=== PATIENT | female | born 1990 | race Caucasian/White ===

== ENCOUNTER 2021-11-20 08:10 | Emergency (ER) | payer BC ==
[~2021-11-20] VITALS: Ht 165.1 cm; Wt 60.8 kg
--- NOTE | 2021-11-20 08:23 | NUR ---
PT AMBULATED TO ER BED 2 WITH A STEADY GAIT.
[2021-11-20 08:25] VITALS: BP 122/65
--- NOTE | 2021-11-20 08:31 | NUR ---
31 Y/O FEMALE BIB SPOUSE C/O INGESTION OF KETAMINE 2 PILLS 37.5MG PO AND 3 IBUPOFEN 600MG PO. PT SELF INDUCED VOMITING 1 TIME. PER PT KETAMINE PRESCRIBED FOR WEIGHT LOSS. DENIES FEVER/CHILLS. DENIES N/V/D. HR 73, SPO2 100% ON RA, BP 122/65. DENIES PAIN. DENIES SOB. DENIES CHEST PAIN. DENIES PMH NKA
--- NOTE | 2021-11-20 08:31 | NUR ---
Note judieone in EDM - 11/20/21 at 0831 by [facility] 31 Y/O FEMALE BIB KETAMINE 2 PILLS 37.5MG PO AND 3 IBUPOFEN 600MG PO. PT SELF INDUCED VOMITING 1 TIME. PER PT KETAMINE PRESCRIBED FOR WEIGHT LOSS. DENIES FEVER/CHILLS. DENIES N/V/D. HR 73, SPO2 100% ON RA, BP 122/65. DENIES PAIN. DENIES SOB. DENIES CHEST PAIN. DENIES PMH NKA
[2021-11-20 10:31] VITALS: BP 116/77
--- NOTE | 2021-11-20 10:31 | NUR ---
Patient discharged with v/s stable. Written and verbal after care instructions given and explained. Patient verbalized understanding. Ambulatory with steady gait. All questions addressed prior to discharge. Advised to follow up with PMD.
== END 2021-11-20 10:31 | disposition home or self-care (01) ==
LOC: MED 08:10
DX: T50.5X1A Poisoning by appetite depressants, accidental (unintentional), initial encounter (principal); F41.9 Anxiety disorder, unspecified; Y92.89 Other specified places as the place of occurrence of the external cause
CPT/HCPCS: 99281